=== PATIENT | male | born 1980 | race African-American/Black ===

== ENCOUNTER 2018-05-31 05:47 | Emergency (ER) | payer BC ==
[~2018-05-31] VITALS: Ht 185.4 cm; Wt 81.8 kg
[~2018-05-31 05:47] MED LIST: AMOXICILLIN500 MG PO; NO
[2018-05-31] MEDS ORDERED: PEPCID20 MG PO (06:36)
[2018-05-31] MEDS ORDERED: BENADRYL 50MG C50 MG PO (06:36)
[2018-05-31] MEDS ORDERED: MEDDOSEPAK PO (06:36)
[2018-05-31 06:40] VITALS: BP 160/90
== END 2018-05-31 06:51 | disposition home or self-care (01) | DRG 916 ==
LOC: ED 05:47
DX: T78.40XA Allergy, unspecified, initial encounter (principal); F17.200 Nicotine dependence, unspecified, uncomplicated; X58.XXXA Exposure to other specified factors, initial encounter

== ENCOUNTER 2019-09-17 11:46 | Emergency (ER) | payer BC ==
[~2019-09-17 11:46] MED LIST changes: +BENADRYL 50MG C50 MG PO; +MEDDOSEPAK PO; +PEPCID20 MG PO
[2019-09-17] MEDS ORDERED: GENTAK0.32 OS (12:17)
[2019-09-17 12:21] VITALS: BP 139/83
== END 2019-09-17 12:27 | disposition home or self-care (01) | DRG 125 ==
LOC: ED 11:46
DX: H10.9 Unspecified conjunctivitis (principal); F17.200 Nicotine dependence, unspecified, uncomplicated